=== PATIENT | male | born 1970 | race Caucasian/White ===

== ENCOUNTER 2023-01-02 13:30 | Emergency (ER) | payer OTHER ==
[~2023-01-02] VITALS: Ht 162.6 cm; Wt 83.9 kg
[2023-01-02 14:07] LABS: BASOPHILS % 0.5 % (0.0-1.0); EOSINOPHILS # (AUTO) 0.1 (0.0-0.4); EOSINOPHILS % 1.2 % (0.0-6.0); MEAN CORPUSCULAR HEMOGLOBIN 29.5 pg (28-32); MEAN CORPUSCULAR VOLUME 84.4 fL (81-99); MONOCYTES # (AUTO) 0.8 (0.2-0.8); MONOCYTES % 10.5 % (4.4-11.3); NEUTROPHILS # (AUTO) 4.7 (2.1-6.9); NEUTROPHILS % 60.4 % (38.7-80.0); PLATELET COUNT 300 x10e3/uL (140-360); RED BLOOD COUNT 4.74 x10e6/uL (4.3-5.7); RED CELL DISTRIBUTION WIDTH 12.4 % (11.7-14.4)
[2023-01-02 14:28] LABS: ALBUMIN 4.2 g/dL (3.5-5.0); ALBUMIN/GLOBULIN RATIO 1.4 (0.8-2.0); ANION GAP 14.1 mmol/L (8-16); CALCIUM 9.2 mg/dL (8.4-10.2); CREATININE, SERUM 0.83 mg/dL (0.72-1.25); POTASSIUM 4.1 mmol/L (3.5-5.1)
[2023-01-02] MEDS ORDERED: PREDNISONE50 MG PO (15:26)
[2023-01-02] MEDS ORDERED: PREDNISONE20 MG PO ×2 (15:26)
[2023-01-02 15:38] VITALS: BP 138/75; PULSE 84; RESP 18; O2SAT 99
== END 2023-01-02 15:39 | disposition home or self-care (01) ==
LOC: ER 13:37
DX: R68.84 Jaw pain (principal); G51.0 Bell's palsy; R59.1 Generalized enlarged lymph nodes; I10 Essential (primary) hypertension; E11.9 Type 2 diabetes mellitus without complications
CPT/HCPCS: 36415; 70491; 80048; 80053; 85025; 99284